=== PATIENT | female | born 1970 | race Caucasian/White ===

== ENCOUNTER 2018-08-17 09:31 | Emergency (ER) | payer MEDICAID ==
[~2018-08-17] VITALS: Ht 157.5 cm; Wt 65.8 kg
[2018-08-17] MEDS ORDERED: CELEXA40 MG PO (09:39)
[2018-08-17] MEDS ORDERED: LAMICTAL XR100 MG PO (09:41)
[2018-08-17] MEDS ORDERED: KLONOPIN1 MG PO (09:41)
[2018-08-17] MEDS ORDERED: NAPROSYN500 MG PO (09:41)
[2018-08-17 10:36] VITALS: BP 116/67
== END 2018-08-17 10:40 | disposition home or self-care (01) ==
LOC: M.ERS 09:31
DX: S93.491A Sprain of other ligament of right ankle, initial encounter (principal); F17.210 Nicotine dependence, cigarettes, uncomplicated; I10 Essential (primary) hypertension; Z90.12 Acquired absence of left breast and nipple; Z98.890 Other specified postprocedural states; Z85.3 Personal history of malignant neoplasm of breast; W10.9XXA Fall (on) (from) unspecified stairs and steps, initial encounter; Y92.89 Other specified places as the place of occurrence of the external cause; Y93.89 Activity, other specified; Y99.8 Other external cause status